=== PATIENT | male | born 1985 | race Hispanic/Latino ===

== ENCOUNTER 2022-11-02 23:10 | Emergency (ER) | payer OTHER, SELFPAY ==
[2022-11-02] MEDS ORDERED: Lidocaine 1% PF 5 ML VIAL ONE (23:33)
[2022-11-02] MEDS ORDERED: Bacitracin 1 PK ONE (23:56)
[2022-11-03] MEDS ORDERED: Boostrix 0.5 ML (Tdap) VIAL (>/=7 yrs of age) ONE (00:06)
[2022-11-03] MEDS ORDERED: Lidocaine 1% PF 5 ML VIAL ONE (00:34)
== END 2022-11-03 00:10 | disposition home or self-care (01) ==
LOC: BURERS 23:10
DX: S68.623A Partial traumatic transphalangeal amputation of left middle finger, initial encounter (principal); W26.8XXA Contact with other sharp object(s), not elsewhere classified, initial encounter; Z23 Encounter for immunization
CPT/HCPCS: 12001; 90471; 90715